=== PATIENT | female | born 1985 | race Caucasian/White ===

== ENCOUNTER 2017-11-07 05:30 | Inpatient (IN) | payer BC ==
[2017-11-07] MEDS: Lactated Ringer's 1,000 ML IV SCH ×2 (07:10→17:19)
[2017-11-07 07:35] VITALS: BMI 33.1
[2017-11-07] MEDS ORDERED: Lidocaine 1% (PF) 30 ML VIAL SC PRN (07:36)
[2017-11-07] MEDS ORDERED: Ibuprofen 800 MG TAB PO PRN (07:36)
[2017-11-07] MEDS ORDERED: [UNRECOGNIZED DRUG - OTHER] IVPB SCH (07:36)
[2017-11-07] MEDS ORDERED: Ondansetron HCl/PF 4 MG/2 ML Vial IVP PRN ×3 (07:36→16:49)
[2017-11-07] MEDS ORDERED: Carboprost 250 MCG/ML AMP IM PRN (07:36)
[2017-11-07] MEDS ORDERED: Lactated Ringer's 1,000 ML IV SCH (07:36)
[2017-11-07] MEDS ORDERED: LR 500 ML/Oxytocin 10 units 500 ML IV SCH (07:36)
[2017-11-07] MEDS ORDERED: PENICILLIN POTASSIUM IVPB SCH (07:36)
[2017-11-07] MEDS ORDERED: Promethazine HCl 25 MG/ML VIAL IM PRN ×3 (07:36→16:49)
[2017-11-07] MEDS ORDERED: Diphenoxylate HCl/Atropine Tablet PO PRN (07:36)
[2017-11-07] MEDS ORDERED: HYDROcodone/Acetaminophen 5/325 mg Tablet PO PRN ×4 (07:36→16:49)
[2017-11-07] MEDS ORDERED: ADMIXTURE FEE IVPB SCH (07:36)
[2017-11-07 07:53] LABS: Hemoglobin 11.6 g/dL (12.0-16.0); Mean Corpuscular Hemoglobin 28.4 pg (27.0-31.0); Mean Corpuscular Volume 83.4 fl (81.0-99.0); Mean Platelet Volume 7.1 fL (7.4-10.4); Platelet Count 243 thou/uL (130-400); RBC Distribution Width 12.9 % (11.5-14.5); Red Blood Cell (RBC) Count 4.08 mill/uL (4.20-5.40); White Blood Cell (WBC) Count 10.2 thou/uL (4.8-10.8)
[2017-11-07 08:22] LABS: HBSAg Index 0.18 S/CO (0-0.99); Hep B Surf Ag Non-Reactive S/CO (NonReactive); Syphilis Antibody Nonreactive (Nonreactive); Syphilis Antibody Index 0.02 S/CO (<1.00 Non-Reactive)
[2017-11-07] MEDS ORDERED: Bupivacaine 0.5% 20 ML, Fentanyl 400 MCG in Sodium Chloride 0.9% 72 ML EPIDURAL SCH (08:45)
[2017-11-07] MEDS ORDERED: Bupivacaine 0.75% W/DEXTROSE 8.25% 2 ML AMP ONE (09:58)
[2017-11-07] MEDS ORDERED: Fentanyl 100 MCG/2 ML VIAL ONE (09:58)
[2017-11-07] MEDS ORDERED: diphenhydrAMINE 50 MG/ML VIAL IVP PRN (10:25)
[2017-11-07] MEDS ORDERED: Fentanyl 100 MCG/2 ML VIAL I-THECAL ONE (10:25)
[2017-11-07] MEDS ORDERED: ePHEDrine/0.9% NaCl/PF SYRINGE 50 mg/10 ml SLOW IVP PRN (10:25)
[2017-11-07] MEDS ORDERED: Lactated Ringer's 500 ML IV PRN (10:25)
[2017-11-07] MEDS ORDERED: Eucerin (Mineral Oil/Petrolatum,White) 30 gm Jar TOP PRN (10:25)
[2017-11-07] MEDS ORDERED: Naloxone HCl 0.4 mg/ml Vial IVP PRN ×2 (10:25)
[2017-11-07] MEDS ORDERED: Bupivacaine 0.75% W/DEXTROSE 8.25% 2 ML AMP NERVE BLCK ONE (10:25)
[2017-11-07] MEDS ORDERED: Acetaminophen 325 MG TAB PO PRN (10:25)
[2017-11-07] MEDS ORDERED: Communication Order-Pharmacy FS SCH (10:30)
[2017-11-07] MEDS ORDERED: Fentanyl 4mcg/Marcaine 0.1% Cassette 100 ML EPIDURAL SCH (10:30)
[2017-11-07] MEDS: ADMIXTURE FEE IVPB SCH ×2 (12:20→17:18)
[2017-11-07] MEDS: PENICILLIN IVPB SCH ×2 (12:20→17:18)
--- NOTE | 2017-11-07 14:43 | PDOC.OPDEL ---
OB Operative/Delivery Note Delivery Dr/Surgeon: Eder for BVOH Pre-Delivery Diagnosis: medically indicated induction (prior post term) Procedure/Post Delivery Dx: vaginal delivery after CS Weeks gestation: 40 Anesthesia: epidural - Findings A Sex: female Weight: 0 oz (pending ) - 1 min: 9 - 5 min: 9 - Additional Findings/Plan Placenta delivered: spontaneous Repaired Obstetrical Laceration: 2nd degree Estimated blood loss: 400 Compilations/Other Findings: repair with 2/0 Chromic Post delivery plan: routine recovery
[2017-11-07] MEDS: LR / Pitocin 40 units/1000 ml 1,000 ML IV PRN ×2 (14:51→15:53)
[2017-11-07] MEDS ORDERED: Milk Of Magnesia 30 ML UDCUP PO PRN (16:49)
[2017-11-07] MEDS ORDERED: Lanolin Ointment 7 GM TUBE TOP PRN (16:49)
[2017-11-07] MEDS ORDERED: Varicella virus, LIVE 0.5 ML VIAL SC ONE (16:49)
[2017-11-07] MEDS ORDERED: Benzocaine/Menthol 20-0.5% 60 ML CAN TOP PRN (16:49)
[2017-11-07] MEDS ORDERED: Adacel (T-DAP) 0.5 ML VIAL IM ONE (16:49)
[2017-11-07] MEDS ORDERED: Bisacodyl 10 MG SUPP PR PRN (16:49)
[2017-11-07] MEDS ORDERED: Preparation H Ointment 28 GM TUBE PR PRN (16:49)
[2017-11-07] MEDS ORDERED: LR / Pitocin 40 units/1000 ml 1,000 ML IV SCH (16:49)
[2017-11-07] MEDS ORDERED: Zolpidem Tartrate 5 MG TAB PO PRN (16:49)
[2017-11-07] MEDS ORDERED: diphenhydrAMINE 25 MG CAP PO PRN (16:49)
[2017-11-07] MEDS ORDERED: Measles/Mumps/Rubella 10 MCG/0.5 ML VIAL SC ONE (16:49)
[2017-11-07] MEDS: Ferrous Sulfate 325 MG TAB PO SCH (17:18)
[2017-11-07] MEDS: Ibuprofen 800 MG TAB PO SCH (21:17)
[2017-11-07] MEDS: Docusate Calcium (SURFAK) 240 MG CAP PO SCH (21:17)
[2017-11-08] MEDS: Ibuprofen 800 MG TAB PO SCH ×2 (05:46→14:00)
[2017-11-08] MEDS ORDERED: Prenatal Vitamin 1 TAB PO SCH (09:00)
[2017-11-08] MEDS: Ferrous Sulfate 325 MG TAB PO SCH (09:34)
[2017-11-08] MEDS: Docusate Calcium (SURFAK) 240 MG CAP PO SCH (09:35)
[2017-11-08 12:09] VITALS: BP 115/64; TEMP 97.5
== END 2017-11-08 17:15 | disposition home or self-care (01) | DRG 775 ==
LOC: L&D 06:25 → 3SW 16:45
PROVIDERS: ADMIT Obstetrics & Gynecology; ATTEND Obstetrics & Gynecology
PROC: 10E0XZZ Delivery of Products of Conception, External Approach (ICD-10-PCS; principal; 2017-11-07)
PROC: 0KQM0ZZ Repair Perineum Muscle, Open Approach (ICD-10-PCS; 2017-11-07)
PROC: 3E033VJ Introduction of Other Hormone into Peripheral Vein, Percutaneous Approach (ICD-10-PCS; 2017-11-07)
DX: O48.0 Post-term pregnancy (principal); O34.211 Maternal care for low transverse scar from previous cesarean delivery; O99.824 Streptococcus B carrier state complicating childbirth; Z3A.40 40 weeks gestation of pregnancy; O70.1 Second degree perineal laceration during delivery; Z37.0 Single live birth
CPT/HCPCS: 51702; 85027; 86780; 86850; 86900; 86901; 87340; 90715; J2405; J2540; J3010; J3490; J7050; J7120